=== PATIENT | male | born 1965 | race Two or more races ===

== ENCOUNTER 2021-09-26 16:17 | Emergency (ER) | payer BC, OTHER ==
[~2021-09-26] VITALS: Ht 170.2 cm; Wt 83.9 kg
[2021-09-26] MEDS ORDERED: TETRACAINE HCL 0.5% OPTH(EYE) SOLN 4ML LEFTEYE ONE (19:30)
[2021-09-26] MEDS ORDERED: FLUORESCEIN SOD OPTH TEST STRIP LEFTEYE ONE (19:30)
[2021-09-26] MEDS ORDERED: MORPHINE SULFATE INJECTION 2 MG/ML SYRG IM ONE (20:00)
[2021-09-26] MEDS ORDERED: KETOROLAC TROMETH 30 MG/ML 1ML VIAL IM ONE (20:00)
[2021-09-26] MEDS ORDERED: ONDANSETRON ODT 4 MG TAB PO ONE (20:00)
[2021-09-26] MEDS ORDERED: SULF10SO15 OP (20:03)
[2021-09-26] MEDS ORDERED: KETO0.3S LEFTEYE (20:03)
[2021-09-26] MEDS ORDERED: IBUP800T27 PO (20:03)
[2021-09-26 20:25] VITALS: BP 166/104
[2021-09-27] MEDS ORDERED: KETO0.3S LEFTEYE (19:01)
[2021-09-27] MEDS ORDERED: SULF10SO15 OP (19:01)
[2021-09-27] MEDS ORDERED: IBUP800T27 PO (19:01)
== END 2021-09-26 20:28 | disposition home or self-care (01) ==
LOC: ER 16:17
DX: S05.02XA Injury of conjunctiva and corneal abrasion without foreign body, left eye, initial encounter (principal); W22.8XXA Striking against or struck by other objects, initial encounter; Y93.89 Activity, other specified; Y92.89 Other specified places as the place of occurrence of the external cause; Y99.8 Other external cause status
CPT/HCPCS: 96372; 99284; J1885; J2270; Q0162